=== PATIENT | male | born 1995 | race Two or more races ===

== ENCOUNTER 2021-02-23 22:18 | Emergency (ER) | payer OTHER ==
[~2021-02-23] VITALS: Ht 180.3 cm; Wt 83.6 kg
[2021-02-23] MEDS ORDERED: DEXAMETHASONE 4 MG TABLET PO ONE (22:30)
[2021-02-23] MEDS ORDERED: PLEASE ENTER ALLERGIES MC SCH (22:30)
--- NOTE | 2021-02-23 23:50 | NUR ---
PT MOVED TO ROOM
--- NOTE | 2021-02-23 23:51 | NUR ---
PT PRESENTS TO ER FOR SOB, COUGH, FEVER, RUNNY NOSE, BODY ACHES, LOW ENERGY, DIARRHEA SINCE LAST WEDNESDAY
[2021-02-24] MEDS ORDERED: ACETAMINOPHEN 500 MG TABLET ONE (00:19)
[2021-02-24] MEDS ORDERED: DEXAMETHASONE 4 MG TABLET ONE (00:19)
[2021-02-24] MEDS ORDERED: ACETAMINOPHEN 500 MG TABLET PO ONE (00:30)
[2021-02-24 01:31] VITALS: BP 110/60
== END 2021-02-24 01:34 | disposition home or self-care (01) ==
LOC: ED 22:30
DX: U07.1 COVID-19 (principal); J18.9 Pneumonia, unspecified organism; J06.9 Acute upper respiratory infection, unspecified; Z72.9 Problem related to lifestyle, unspecified
CPT/HCPCS: 71045; 99284; U0003; U0005